=== PATIENT | female | born 1960 | race Caucasian/White ===

== ENCOUNTER 2020-02-12 15:34 | Emergency (ER) | payer OTHER ==
[~2020-02-12] VITALS: Ht 152.4 cm; Wt 70.3 kg
[~2020-02-12 15:34] MED LIST: ADVIL LIQUI-GE200 MG; BENADRYL25 MG; CIPROFLOXACIN500 M3 PO; HYDROXYZINE HCL25 M1 PO; IBUPROFEN 800800 MG PO; NOHOMEMEDICATIONS; NORCO 5-325 TA1 EACH PO; PREDNISONE50 MG PO
[2020-02-12] MEDS ORDERED: LEVAQUIN 750 M750 MG PO (17:05)
[2020-02-12] MEDS ORDERED: PROAIR HFA8.5 GM INH (17:07)
[2020-02-12 17:18] VITALS: BP 130/78
== END 2020-02-12 17:18 | disposition home or self-care (01) ==
LOC: ER 15:34
DX: J18.9 Pneumonia, unspecified organism (principal); M54.6 Pain in thoracic spine; Z79.899 Other long term (current) drug therapy; Z88.5 Allergy status to narcotic agent